=== PATIENT | female | born 1985 | race Caucasian/White ===

== ENCOUNTER 2017-10-28 08:38 | Emergency (ER) | payer OTHER | END 2017-10-28 10:04 | disposition home or self-care (01) | LOC: M ED 08:38 | DX: R07.89 Other chest pain (principal); Z80.3 Family history of malignant neoplasm of breast; Z79.899 Other long term (current) drug therapy; Z88.1 Allergy status to other antibiotic agents | CPT/HCPCS: 71046 ==